=== PATIENT | female | born 1930 | race Caucasian/White ===

== ENCOUNTER 2016-07-07 09:05 | Emergency (ER) | payer MEDICARE, OTHER ==
--- NOTE | 2016-07-07 09:27 | ERPHSYRPT ---
- History of Present Illness Time Seen by Provider: 07/07/16 09:20 Source: patient Exam Limitations: no limitations Physician History: 85 y/o female brought in by son for falling this morning. Pt mentions she was using her walker when she got it caught on something and landed on her side and then on her head. Pt admits to having pain of both hips and mild pain of her hips. Pt describes the pain as aching, constant, 6/10 and pt has not taken any pain meds. Pt is not on any blood thinners. No LOC. Occurred: just prior to arrival Reason for Fall: slipped Injuries/Pain Location: neck, pelvis Loss of Consciousness: no loss of consciousness Quality: aching Severity of Pain-Max: moderate Severity of Pain-Current: moderate Modifying Factors: Improves With: nothing Associated Symptoms (Fall): denies symptoms Allergies/Adverse Reactions: No Known Drug Allergies Allergy (Verified 07/07/16 09:30) Home Medications: Docusate Sodium [Colace] 100 mg PO BID PRN 01/02/16 [History] Ferrous Sulfate [Iron] 325 mg PO DAILY 01/02/16 [History] Bumetanide 1 mg [Bumex 1 mg] 1 mg PO DAILY 07/07/16 [History] Carbidopa/Levodopa [Carbidopa-Levo 25-100 mg Odt] 1 each PO QID 07/07/16 [ History] Diclofenac Sodium Gel [Voltaren GEL] 100 gm TP BID 07/07/16 [History] Hydroxyzine HCl 25 mg [Atarax 25 mg] 25 mg PO TID 07/07/16 [History] Metoprolol Succinate 25 mg PO DAILY 07/07/16 [History] Hx Tetanus, Diphtheria Vaccination/Date Given: Yes Hx Influenza Vaccination/Date Given: Yes (2014) Hx Pneumococcal Vaccination/Date Given: Yes - Review of Systems Constitutional: No Fever, No Chills Eyes: No Symptoms Ears, Nose, & Throat: No Symptoms Respiratory: No Cough, No Dyspnea Cardiac: No Chest Pain, No Edema, No Syncope Abdominal/Gastrointestinal: No Abdominal Pain, No Nausea, No Vomiting, No Diarrhea Genitourinary Symptoms: No Dysuria Musculoskeletal: Neck Pain, Joint Pain, No Back Pain Skin: No Rash Neurological: No Dizziness, No Focal Weakness, No Sensory Changes Psychological: No Symptoms Endocrine: No Symptoms All Other Systems: Reviewed and Negative - Past Medical History Pertinent Past Medical History: Yes Neurological History: Other ENT History: No Pertinent History Cardiac History: Congestive Heart Failure, Hypertension Respiratory History: CHF Endocrine Medical History: No Pertinent History Musculoskeletal History: No Pertinent History GI Medical History: No Pertinent History History: No Pertinent History Psycho-Social History: No Pertinent History Female Reproductive Disorders: Breast Cancer Other Medical History: PARKINSONS - Past Surgical History Past Surgical History: Yes Neuro Surgical History: No Pertinent History Cardiac: No Pertinent History Respiratory: No Pertinent History Gastrointestinal: No Pertinent History Genitourinary: No Pertinent History Musculoskeletal: Orthopedic Surgery Female Surgical History: Hysterectomy, Mastectomy Other Surgical History: RIGHT MASTECTOMY IN 1984 FROM BREAST CA - Social History Smoking Status: Never smoker Exposure to second hand smoke: No Drug Use: none Patient Lives Alone: No Significant Family History: heart disease, hypertension - Nursing Vital Signs Nursing Vital Signs: Initial Vital Signs Temperature 98.9 F Temperature Source Oral Pulse Rate 88 Respiratory Rate 16 Blood Pressure 116/58 Pain Intensity 0 - Tomasa Coma Score Best Eye Response ([place]): (4) open spontaneously Best Verbal Response (Tomasa): (5) oriented Best Motor Response ([place]omas[place]): (6) obeys commands [place] Total: 15 - Physical Exam General Appearance: no apparent distress, alert Head Injury: no evidence of injury Eye Exam: PERRL/EOMI ENT Exam: airway nml Neck Exam: normal inspection, No tenderness Respiratory/Chest Exam: normal breath sounds, No chest tenderness, No respiratory distress Cardiovascular Exam: normal heart sounds, regular rate/rhythm Gastrointestinal Exam: soft, No tenderness, No distention, No guarding, No ecchymosis Back Exam: normal inspection, No vertebral tenderness Extremity Exam: normal inspection, pelvis stable, limited range of motion, hip tenderness, pain with movement, No deformities Neurologic Exam: alert, oriented x 3, cooperative, sensation nml, No motor deficits Skin Exam: normal color, warm, dry Ordered Tests: Active Orders 24 hr Category Date Time Status Cervical Collar Application STAT Care 07/07/16 10:44 Active EKG-ER Only STAT Care 07/07/16 09:45 Active Regular Diet Diet 07/07/16 Dinner Active CERVICAL SPINE WO CONTRAST [CT] Stat Exams 07/07/16 09:29 Completed HEAD WITHOUT CONTRAST [CT] Stat Exams 07/07/16 09:29 Completed HIP JUVENTINO (4V) INCL PELV IF DONE Stat Exams 07/07/16 09:29 Completed CBCD [CBC W DIFF] Stat Lab 07/07/16 11:20 Completed CMP Stat Lab 07/07/16 11:20 Completed Manual Differential NC Stat Lab 07/07/16 11:20 Completed TROPONIN Stat Lab 07/07/16 11:20 Completed UA W/ MICROSCOPIC Stat Lab 07/07/16 09:50 Completed UA W/RFX UR CULTURE Stat Lab 07/07/16 09:50 Completed Medication Summary Discontinued Medications Generic Name Dose Route Start Last Admin Trade Name Lisa PRN Reason Stop Dose Admin Morphine Sulfate 2 mg 07/07/16 09:30 07/07/16 16:12 Morphine Sulfate 2 Mg Inj IM 07/07/16 09:31 Not Given STAT ONE Morphine Sulfate 2 mg 07/07/16 10:32 07/07/16 10:44 Morphine Sulfate 2 Mg Inj IV 07/07/16 10:33 2 mg STAT ONE Administration Morphine Sulfate Confirm 07/07/16 10:42 Morphine Sulfate 2 Mg Inj Administered 07/07/16 10:43 Dose 2 mg .ROUTE .Decalog-MED ONE Lab/Rad Data: Laboratory Result Diagrams 07/07/16 11:20 07/07/16 11:20 Laboratory Results 07/07/16 07/07/16 07/07/16 Range/Units 11:20 11:20 11:20 WBC 7.2 (4.0-10.5) K/mm3 RBC 3.74 L (4.1-5.4) M/mm3 Hgb 11.0 L (12.0-16.0) gm/dl Hct 35.0 (35-47) % MCV 93.6 (78-100) fl MCH 29.4 (26-32) pg MCHC 31.4 L (32-36) g/dl RDW 14.2 H (11.5-14.0) % Plt Count 165 (150-450) K/mm3 MPV 10.0 H (6-9.5) fl Segmented Neutrophils 79 H (36.0-66.0) % Band Neutrophils 6 H (0.0-2.0) % Lymphocytes (Manual) 14 L (24-44) % Monocytes (Manual) 1 (0.0-12.0) % Differential Comment ABNORMAL Platelet Estimate NORMAL (NORMAL) Hypochromasia 1+ Sodium 141 (136-145) mEq/L Potassium 4.6 (3.5-5.1) mEq/L Chloride 104 (98-107) mEq/L Carbon Dioxide 33.3 H (21-32) mEq/L Anion Gap 8.4 (5-15) MEQ/L BUN 24 H (9-20) mg/dL Creatinine 0.88 (0.55-1.30) mg/dl Estimated GFR > 60 ML/MIN Glucose 91 (70-110) MG/DL Calcium 8.6 (8.5-10.1) mg/dL Total Bilirubin 0.5 (0.2-1.0) mg/dL AST 23 (15-37) U/L ALT 17 (12-78) U/L Alkaline Phosphatase 57 (46-116) U/L Troponin I < 0.017 (0.000-0.056) ng/ml Serum Total Protein 6.6 (6.4-8.2) gm/dL Albumin 3.5 (3.4-5.0) g/dL Ur Collection Type Urine Color (YELLOW) Urine Appearance (CLEAR) Urine pH (5-6) Ur Specific [place] (1.005-1.025) Urine Protein (Negative) Urine Glucose (UA) (NEGATIVE) mg/dL Urine Ketones (NEGATIVE) Urine Nitrite (NEGATIVE) Urine Bilirubin (NEGATIVE) Urine Urobilinogen (0-1) mg/dL Urine WBC (Auto) (NEGATIVE) Urine RBC (Auto) (0-5) Sharath/ul Urine Microscopic RBC (0-2) /HPF Ur Epithelial Cells (FEW) /HPF Amorphous Crystals (NEGATIVE) /HPF Specimen Received 07/07/16 Range/Units 09:50 WBC (4.0-10.5) K/mm3 RBC (4.1-5.4) M/mm3 Hgb (12.0-16.0) gm/dl Hct (35-47) % MCV (78-100) fl MCH (26-32) pg MCHC (32-36) g/dl RDW (11.5-14.0) % Plt Count (150-450) K/mm3 MPV (6-9.5) fl Segmented Neutrophils (36.0-66.0) % Band Neutrophils (0.0-2.0) % Lymphocytes (Manual) (24-44) % Monocytes (Manual) (0.0-12.0) % Differential Comment Platelet Estimate (NORMAL) Hypochromasia Sodium (136-145) mEq/L Potassium (3.5-5.1) mEq/L Chloride (98-107) mEq/L Carbon Dioxide (21-32) mEq/L Anion Gap (5-15) MEQ/L BUN (9-20) mg/dL Creatinine (0.55-1.30) mg/dl Estimated GFR ML/MIN Glucose (70-110) MG/DL Calcium (8.5-10.1) mg/dL Total Bilirubin (0.2-1.0) mg/dL AST (15-37) U/L ALT (12-78) U/L Alkaline Phosphatase (46-116) U/L Troponin I (0.000-0.056) ng/ml Serum Total Protein (6.4-8.2) gm/dL Albumin (3.4-5.0) g/dL Ur Collection Type VOID Urine Color YELLOW (YELLOW) Urine Appearance CLOUDY (CLEAR) Urine pH 7.5 (5-6) Ur Specific [place] 1.015 (1.005-1.025) Urine Protein 30 (Negative) Urine Glucose (UA) NEGATIVE (NEGATIVE) mg/dL Urine Ketones NEGATIVE (NEGATIVE) Urine Nitrite NEGATIVE (NEGATIVE) Urine Bilirubin NEGATIVE (NEGATIVE) Urine Urobilinogen 0.2 (0-1) mg/dL Urine WBC (Auto) NEGATIVE (NEGATIVE) Urine RBC (Auto) TRACE-INTACT (0-5) Sharath/ul Urine Microscopic RBC 0-2 (0-2) /HPF Ur Epithelial Cells RARE (FEW) /HPF Amorphous Crystals MODERATE (NEGATIVE) /HPF Specimen Received 07/07/16 0958 - Progress Progress: improved Progress Note: 07/07/16 12:[address] scan head and cervical spine are within normal limits. The bilateral hip x ray are normal. The rest of the labs and UA are normal. Pt will have a PT evaluation prior to being discharged. 07/07/16 16:27 Pt will be going to [facility] [address] - Departure Time of Disposition: 16:27 Departure Disposition: Home Clinical Impression: Falls Condition: Stable Critical Care Time: No Instructions: Prevent Falls Additional Instructions: Return to the ER if you should continue to fall, feel dizzy, have leg weakness, chest pain, shortness of breath or palpitations.
[2016-07-07 09:30] VITALS: O2SAT 97
[2016-07-07] MEDS ORDERED: MORPHINE SULFATE 2 MG INJ IM ONE (09:30)
--- NOTE | 2016-07-07 10:06 | XRAY ---
Indication: Headache following fall. Multiple contiguous axial images obtained through the head without contrast. Comparison: January 02, 2016 There is again age-appropriate global atrophy and benign basal ganglia calcifications. No acute intracranial hemorrhage, abnormal extra-axial fluid collection, or mass effect. Fourth ventricle is midline without hydrocephalus. Stable mucosal thickening/fluid leveling in the right sphenoid sinus and new tiny fluid leveling in the right maxillary sinus. Remaining mastoid air cells are pneumatized and clear. Impression: Stable nonacute senile brain with again paranasal sinus disease. CTDI is 48.76
[2016-07-07 10:08] LABS: Collection Type VOID; Ph 7.5 (5-6)
[2016-07-07 10:09] LABS: COMPLETE URINE MICROSCOPIC? YES; Epithelial Cells RARE /HPF (FEW)
[2016-07-07 10:10] LABS: ADD URINE CULTURE? NO (NO)
--- NOTE | 2016-07-07 10:12 | XRAY ---
Indication: Pain following fall. Multiple contiguous axial images obtained through the cervical spine. Sagittal and coronal reformatted images obtained. Comparison: January 02, 2016. Axial images again demonstrates age-related osteopenia. No acute fracture, suspicious bony lesions, or spinal canal stenosis. Sagittal and coronal reformatted images demonstrates normal alignment. Disc spaces maintained. No acute compression fracture, subluxation, or jumped facet. Normal-appearing craniocervical junction. Visualized noncontrasted soft tissues again demonstrates minimal right carotid calcifications, heterogeneous thyroid gland, and right apical calcified pulmonary scarring/fibrosis. Impression: Stable osteopenia. Again negative for acute fracture/subluxation. CT DI is 57.70
--- NOTE | 2016-07-07 10:17 | XRAY ---
Indication: Bilateral hip pain following fall. Comparison: Left hip exam of December 06, 2015 AP pelvis and 2 views of the left and right hip again demonstrates age-related osteopenia, left total hip arthroplasty with adjacent heterotopic ossifications, lumbosacral junction degenerative changes, pelvic phleboliths, and fecal stasis. No new/acute findings.
[2016-07-07] MEDS ORDERED: MORPHINE SULFATE 2 MG INJ IV ONE (10:32)
[2016-07-07] MEDS ORDERED: MORPHINE SULFATE 2 MG INJ ONE (10:42)
[2016-07-07 11:26] LABS: Mean Cell Volume 93.6 fl (78-100); Mean Corpuscular Hemoglobin 29.4 pg (26-32); Platelet Count 165 K/mm3 (150-450); Red Blood Count 3.74 M/mm3 (4.1-5.4); Red Cell Distribution Width 14.2 % (11.5-14.0); White Blood Count 7.2 K/mm3 (4.0-10.5)
[2016-07-07 11:45] LABS: ALBUMIN 3.5 g/dL (3.4-5.0); ALKALINE PHOSPHATASE 57 U/L (46-116); ANION GAP 8.4 MEQ/L (5-15); BILIRUBIN,TOTAL 0.5 mg/dL (0.2-1.0); BLOOD UREA NITROGEN 24 mg/dL (9-20); CHLORIDE 104 mEq/L (98-107); Carbon Dioxide 33.3 mEq/L (21-32); Glucose 91 MG/DL (70-110); Potassium 4.6 mEq/L (3.5-5.1); SGOT/AST 23 U/L (15-37); SGPT/ALT 17 U/L (12-78); SODIUM 141 mEq/L (136-145); Total Protein 6.6 gm/dL (6.4-8.2)
[2016-07-07 12:45] LABS: BAND 6 % (0.0-2.0); Total Cells Counted 100
[2016-07-07 12:46] LABS: Hypochromia 1+; Platelet Estimate NORMAL (NORMAL)
[2016-07-07 16:53] VITALS: BP 118/62; PULSE 84
== END 2016-07-07 16:42 | disposition short-term general hospital (02) ==
LOC: ED 09:05
DX: S70.00XA Contusion of unspecified hip, initial encounter (principal); S00.93XA Contusion of unspecified part of head, initial encounter; M25.552 Pain in left hip; M25.551 Pain in right hip; M54.2 Cervicalgia; W01.0XXA Fall on same level from slipping, tripping and stumbling without subsequent striking against object, initial encounter; I50.9 Heart failure, unspecified; I10 Essential (primary) hypertension; Z79.899 Other long term (current) drug therapy
CPT/HCPCS: 36415; 70450; 72125; 73522; 80053; 81000; 84484; 85025; 93005; 96374; 99283; J2270

== ENCOUNTER 2017-01-07 03:15 | Observation (INO) | payer MEDICARE, OTHER ==
[2017-01-07] MEDS ORDERED: Sodium Chloride 0.9% 1000 ML 1,000 ML IV SCH ×2 (03:45→06:09)
--- NOTE | 2017-01-07 03:48 | ERPHSYRPT ---
- History of Present Illness Time Seen by Provider: 01/07/17 03:42 Source: patient Exam Limitations: no limitations Physician History: 86-year-old white female with history of congestive heart failure, high blood pressure, Parkinson's, breast cancer Brought by medics with complaint of weakness. According to the patient she was unable to get out of her chair into the bathroom medics were summoned. Medics noted that the patient was week. Patient states that she felt like her legs were stiff she did not have any focal movement deficits. Patient does have Parkinson's and obvious tremor. She is not having any chest pain no shortness of breath no abdominal pain no nausea no vomiting. Patient apparently has health care during the day but the none at night. Past medical history congestive heart failure, high blood pressure Parkinson's, breast cancer. past surgical history includes hysterectomy and mastectomy Timing/Duration: today Severity: moderate Modifying Factors: Improves With: nothing Associated Symptoms: weakness, other (patient with Parkinson's states felt stiff could not get out of chair), No nausea, No vomiting, No abdominal pain, No shortness of breath, No heartburn, No diaphoresis, No cough, No chills, No chest pain, No fever, No headaches, No loss of appetite, No malaise, No rash, No syncope, No seizure Allergies/Adverse Reactions: No Known Drug Allergies Allergy (Verified 01/07/17 05:42) Home Medications: Docusate Sodium [Colace] 100 mg PO BID 01/02/16 [History] Bumetanide 1 mg [Bumex 1 mg] 1 mg PO DAILY 07/07/16 [History] Carbidopa/Levodopa [Carbidopa-Levo 25-100 mg Odt] 1 each PO BID 07/07/16 [ History] Metoprolol Succinate 25 mg PO DAILY 07/07/16 [History] Hx Tetanus, Diphtheria Vaccination/Date Given: Yes Hx Influenza Vaccination/Date Given: Yes (2014) Hx Pneumococcal Vaccination/Date Given: Yes - Review of Systems Constitutional: Weakness, No Fever, No Chills Eyes: No Symptoms Ears, Nose, & Throat: No Symptoms Respiratory: No Cough, No Dyspnea Cardiac: No Chest Pain, No Edema, No Syncope Abdominal/Gastrointestinal: No Abdominal Pain, No Nausea, No Vomiting, No Diarrhea Genitourinary Symptoms: No Dysuria Musculoskeletal: Other (Patient states that her arms and legs are stiff) Skin: No Rash Neurological: Tremors, No Dizziness, No Focal Weakness, No Sensory Changes Psychological: No Symptoms Endocrine: No Symptoms All Other Systems: Reviewed and Negative - Past Medical History Pertinent Past Medical History: Yes Neurological History: Other ENT History: No Pertinent History Cardiac History: Congestive Heart Failure, Hypertension Respiratory History: CHF Endocrine Medical History: No Pertinent History Musculoskeletal History: No Pertinent History GI Medical History: No Pertinent History History: No Pertinent History Psycho-Social History: No Pertinent History Female Reproductive Disorders: Breast Cancer Other Medical History: PARKINSONS - Past Surgical History Past Surgical History: Yes Neuro Surgical History: No Pertinent History Cardiac: No Pertinent History Respiratory: No Pertinent History Gastrointestinal: No Pertinent History Genitourinary: No Pertinent History Musculoskeletal: Orthopedic Surgery Female Surgical History: Hysterectomy, Mastectomy Other Surgical History: RIGHT MASTECTOMY IN 1984 FROM BREAST CA - Social History Smoking Status: Never smoker Exposure to second hand smoke: No Drug Use: none Patient Lives Alone: No Significant Family History: heart disease, hypertension - Nursing Vital Signs Nursing Vital Signs: Initial Vital Signs Temperature 98.1 F Temperature Source Oral Pulse Rate 67 Respiratory Rate 18 Blood Pressure [] 147/70 Pain Intensity 5 - Physical Exam General Appearance: other (elderly white female tremors of both hands) Eye Exam: PERRL/EOMI, eyes nml inspection Ears, Nose, Throat Exam: normal ENT inspection, TMs normal, pharynx normal, moist mucous membranes Neck Exam: normal inspection, non-tender, supple, full range of motion Respiratory Exam: normal breath sounds, lungs clear, No respiratory distress Cardiovascular Exam: tachycardia Gastrointestinal/Abdomen Exam: soft, normal bowel sounds, No tenderness, No mass Extremity Exam: other (patient with full range of motion to mo0ve both feet, and lower legs) Neurologic Exam: alert, oriented x 3, cooperative, normal mood/affect, nml cerebellar function, nml station & gait, sensation nml, other (positive tremor) , No motor deficits Skin Exam: normal color, warm, dry, No rash SpO2 Interpretation: normal - Course Nursing assessment & vital signs reviewed: Yes EKG Interpreted by Me: RATE (88 bpm), Other (EKG: Sinus arrhythmia, 88 bpm, normal axis, large amount of artifact, no acute ST or T wave changes, compared to July 07, 2016) - Radiology Exams Chest X-ray Interpretation: Interpreted by me, Other (no acute disease process noted) Ordered Tests: Active Orders 24 hr Category Date Time Status EKG-ER Only STAT Care 01/07/17 03:41 Active IV Insertion STAT Care 01/07/17 03:41 Active CHEST 1 VIEW (PORTABLE) Stat Exams 01/07/17 03:43 Taken AMYLASE Stat Lab 01/07/17 04:16 Completed CBC W DIFF Stat Lab 01/07/17 04:16 Completed CMP Stat Lab 01/07/17 04:16 Completed LIPASE Stat Lab 01/07/17 04:16 Completed UA W/ MICROSCOPIC Stat Lab 01/07/17 05:00 Completed Transfer Order Routine Transfer 01/07/17 05:44 Ordered Medication Summary Generic Name Dose Route Start Last Admin Trade Name Freq PRN Reason Stop Dose Admin Sodium Chloride 1,000 mls @ 100 mls/hr 01/07/17 03:45 01/07/17 03:59 Sodium Chloride 0.9% 1000 Ml IV 02/06/17 03:44 100 mls/hr .Q10H ERNESTO Administration Lab/Rad Data: Laboratory Result Diagrams 01/07/17 04:16 01/07/17 04:16 Laboratory Results 01/07/17 01/07/17 01/07/17 Range/Units 05:00 04:16 04:16 WBC (4.0-10.5) K/mm3 RBC (4.1-5.4) M/mm3 Hgb (12.0-16.0) gm/dl Hct (35-47) % MCV (78-100) fl MCH (26-32) pg MCHC (32-36) g/dl RDW (11.5-14.0) % Plt Count (150-450) K/mm3 MPV (6-9.5) fl Gran % (36.0-66.0) % Lymphocytes % (24.0-44.0) % Monocytes % (0.0-12.0) % Eosinophils % (0.00-5.0) % Basophils % (0.0-0.4) % Basophils # (0-0.4) Sodium 142 (136-145) mEq/L Potassium 4.2 (3.5-5.1) mEq/L Chloride 105 (98-107) mEq/L Carbon Dioxide 33.1 H (21-32) mEq/L Anion Gap 8.5 (5-15) MEQ/L BUN 27 H (9-20) mg/dL Creatinine 1.07 (0.55-1.30) mg/dl Estimated GFR 52 ML/MIN Glucose 116 H (70-110) MG/DL Calcium 8.7 (8.5-10.1) mg/dL Total Bilirubin 0.40 (0.2-1.0) mg/dL AST 18 (15-37) U/L ALT 11 L (12-78) U/L Alkaline Phosphatase 54 (46-116) U/L Serum Total Protein 6.4 (6.4-8.2) gm/dL Albumin 3.4 (3.4-5.0) g/dL Amylase 63 (25-115) U/L Lipase 333 (73-393) U/L Ur Collection Type CATH Urine Color YELLOW (YELLOW) Urine Appearance HAZY (CLEAR) Urine pH 8.0 (5-6) Ur Specific [place] 1.005 (1.005-1.025) Urine Protein NEGATIVE (Negative) Urine Ketones NEGATIVE (NEGATIVE) Urine Blood 50 (0-5) Sharath/ul Urine Nitrite NEGATIVE (NEGATIVE) Urine Bilirubin NEGATIVE (NEGATIVE) Urine Urobilinogen NORMAL (0-1) mg/dL Ur Leukocyte Esterase NEGATIVE (NEGATIVE) Urine Microscopic RBC 15-25 (0-2) /HPF Urine Microscopic WBC 0-2 (0-5) /HPF Ur Epithelial Cells RARE (FEW) /HPF Amorphous Crystals FEW (NEGATIVE) /HPF Urine Bacteria FEW (NEGATIVE) /HPF Urine Glucose NEGATIVE (NEGATIVE) mg/dL Specimen Received 01/07/17 0500 01/07/17 Range/Units 04:16 WBC 3.9 L (4.0-10.5) K/mm3 RBC 3.60 L (4.1-5.4) M/mm3 Hgb 10.6 L (12.0-16.0) gm/dl Hct 33.5 L (35-47) % MCV 93.1 (78-100) fl MCH 29.4 (26-32) pg MCHC 31.6 L (32-36) g/dl RDW 14.1 H (11.5-14.0) % Plt Count 150 (150-450) K/mm3 MPV 10.2 H (6-9.5) fl Gran % 71.1 H (36.0-66.0) % Lymphocytes % 17.8 L (24.0-44.0) % Monocytes % 8.5 (0.0-12.0) % Eosinophils % 2.1 (0.00-5.0) % Basophils % 0.5 (0.0-0.4) % Basophils # 0.02 (0-0.4) Sodium (136-145) mEq/L Potassium (3.5-5.1) mEq/L Chloride (98-107) mEq/L Carbon Dioxide (21-32) mEq/L Anion Gap (5-15) MEQ/L BUN (9-20) mg/dL Creatinine (0.55-1.30) mg/dl Estimated GFR ML/MIN Glucose (70-110) MG/DL Calcium (8.5-10.1) mg/dL Total Bilirubin (0.2-1.0) mg/dL AST (15-37) U/L ALT (12-78) U/L Alkaline Phosphatase (46-116) U/L Serum Total Protein (6.4-8.2) gm/dL Albumin (3.4-5.0) g/dL Amylase (25-115) U/L Lipase (73-393) U/L Ur Collection Type Urine Color (YELLOW) Urine Appearance (CLEAR) Urine pH (5-6) Ur Specific [place] (1.005-1.025) Urine Protein (Negative) Urine Ketones (NEGATIVE) Urine Blood (0-5) Sharath/ul Urine Nitrite (NEGATIVE) Urine Bilirubin (NEGATIVE) Urine Urobilinogen (0-1) mg/dL Ur Leukocyte Esterase (NEGATIVE) Urine Microscopic RBC (0-2) /HPF Urine Microscopic WBC (0-5) /HPF Ur Epithelial Cells (FEW) /HPF Amorphous Crystals (NEGATIVE) /HPF Urine Bacteria (NEGATIVE) /HPF Urine Glucose (NEGATIVE) mg/dL Specimen Received - Progress Progress: improved Progress Note: 01/07/17 05:42 86-year-old white female with history of congestive heart failure high blood pressure Parkinson's breast cancer. Brought by medics patient apparently was unable to get out of her chair to go to the bathroom tonight patient arrives quite weak and tremulous. She states that her legs were stiff she did not have any focal deficits on physical exam. Patient's CBC essentially normal chemistries essentially normal urine 15-25 red cells per high-power field EKG large amount of artifact 88 bpm sinus arrhythmia no acute ST or T wave changes are noted. I've discussed patient's case with Dr. Harris will place patient on observation. Patient does seem to be improving with IV hydration - Departure Time of Disposition: 05:43 Departure Disposition: Observation Clinical Impression: Weakness Condition: Fair Critical Care Time: No Referrals: KIRILL VILLEDA MD [Primary Care Provider] -
[2017-01-07] MEDS ORDERED: Sodium Chloride 0.9% 1000 ML 1,000 ML ONE (03:58)
[2017-01-07 04:22] LABS: BASOPHIL % 0.5 % (0.0-0.4); Eosinophil % 2.1 % (0.00-5.0); Granulocytes % 71.1 % (36.0-66.0); Lymphocytes % 17.8 % (24.0-44.0); Mean Cell Volume 93.1 fl (78-100); Mean Corpuscular Hemoglobin 29.4 pg (26-32); Mean Platelet Volume 10.2 fl (6-9.5); Monocytes % 8.5 % (0.0-12.0); Platelet Count 150 K/mm3 (150-450); Red Cell Distribution Width 14.1 % (11.5-14.0); White Blood Count 3.9 K/mm3 (4.0-10.5)
[2017-01-07 04:54] LABS: ALBUMIN 3.4 g/dL (3.4-5.0); ANION GAP 8.5 MEQ/L (5-15); BILIRUBIN,TOTAL 0.4 mg/dL (0.2-1.0); Carbon Dioxide 33.1 mEq/L (21-32); Potassium 4.2 mEq/L (3.5-5.1); Total Protein 6.4 gm/dL (6.4-8.2)
[2017-01-07 05:14] LABS: Bilirubin NEGATIVE (NEGATIVE); Blood 50 Ery/ul (0-5); COMPLETE URINE MICROSCOPIC? YES; Collection Type CATH; Glucose NEGATIVE (NEGATIVE); Leukocyte Esterase NEGATIVE (NEGATIVE)
[2017-01-07 05:19] LABS: Bacteria FEW /HPF (NEGATIVE); Epithelial Cells RARE /HPF (FEW); WBC 0-2 /HPF (0-5)
[2017-01-07 05:20] LABS: ADD URINE CULTURE? NO (NO)
[2017-01-07 07:41] LABS: Mean Platelet Volume 10.5 fl (6-9.5); Platelet Count 158 K/mm3 (150-450); Red Blood Count 3.76 M/mm3 (4.1-5.4); White Blood Count 4.2 K/mm3 (4.0-10.5)
[2017-01-07 08:10] LABS: Mean Corpuscular Hemoglobin 29.2 pg (26-32)
[2017-01-07 08:44] LABS: ANION GAP 10.9 MEQ/L (5-15); BLOOD UREA NITROGEN 23 mg/dL (9-20); CHLORIDE 104 mEq/L (98-107); Carbon Dioxide 29.9 mEq/L (21-32); Glucose 90 MG/DL (70-110); Potassium 4.1 mEq/L (3.5-5.1); SODIUM 141 mEq/L (136-145)
[2017-01-07] MEDS ORDERED: DISPOSABLE RC PRN (09:37)
[2017-01-07] MEDS ORDERED: TYLENOL 325 MG PO PRN (09:37)
--- NOTE | 2017-01-07 09:59 | XRAY ---
Indication: Weakness. Comparison: December 03, 2015. Portable chest unchanged again hyperinflated and clear with incidental calcified granulomas. Heart is not enlarged. Bony thorax intact again with osteopenia, degenerative changes, and right mastectomy/axillary ken dissection. No new/acute findings.
[2017-01-07] MEDS ORDERED: BUMEX 1 MG PO SCH (10:00)
[2017-01-07] MEDS ORDERED: Colace 100 MG PO SCH (10:00)
[2017-01-07] MEDS ORDERED: Sinemet 25/100 MG PO SCH (10:00)
[2017-01-07] MEDS ORDERED: FEOSOL 325 MG PO SCH ×2 (10:00→12:00)
[2017-01-07] MEDS ORDERED: Voltaren GEL TP SCH (10:00)
[2017-01-07] MEDS ORDERED: LEVODOPA PO SCH (10:00)
[2017-01-07] MEDS ORDERED: CARBIDOPA PO SCH (10:00)
[2017-01-07] MEDS ORDERED: Toprol-Xl 25MG Tablets PO SCH (10:00)
--- NOTE | 2017-01-07 10:02 | PCM.HP ---
History of Present Illness - Chief Complaint Chief Complaint: weakness History of Present Illness: 86-year-old white female with history of congestive heart failure, high blood pressure, Parkinson's, breast cancer Brought by medics with complaint of weakness. According to the patient she was unable to get out of her chair into the bathroom medics were summoned. Medics noted that the patient was week. Patient states that she felt like her legs were stiff she did not have any focal movement deficits. Patient does have Parkinson's and obvious tremor. She is not having any chest pain no shortness of breath no abdominal pain no nausea no vomiting. Patient apparently has health care during the day but the none at night. Past medical history congestive heart failure, high blood pressure Parkinson's, breast cancer. past surgical history includes hysterectomy and mastectomy Timing/Duration: today Severity: moderate Modifying Factors: Improves With: nothing Associated Symptoms: weakness, other (patient with Parkinson's states felt stiff could not get out of chair), No nausea, No vomiting, No abdominal pain, No shortness of breath, No heartburn, No diaphoresis, No cough, No chills, No chest pain, No fever, No headaches, No loss of appetite, No malaise, No rash, No syncope, No seizure - Review of Systems Constitutional: No Fever, No Chills Eyes: No Symptoms Ears, Nose, & Throat: No Symptoms Respiratory: No Cough, No Short Of Breath Cardiac: No Chest Pain, No Edema, No Syncope Abdominal/Gastrointestinal: No Abdominal Pain, No Nausea, No Vomiting, No Diarrhea Genitourinary Symptoms: No Dysuria Musculoskeletal: No Back Pain, No Neck Pain Skin: No Rash Neurological: No Dizziness, No Focal Weakness, No Sensory Changes Psychological: No Symptoms Endocrine: No Symptoms Hematologic/Lymphatic: No Symptoms Immunological/Allergic: No Symptoms Medications & Allergies Home Medications: Home Medication List Docusate Sodium [Colace] 100 mg PO BID 01/02/16 [History Confirmed 01/07/17] Bumetanide 1 mg [Bumex 1 mg] 1 mg PO DAILY 07/07/16 [History Confirmed ] Carbidopa/Levodopa [Carbidopa-Levo 25-100 mg Odt] 1 each PO BID 07/07/16 [ History Confirmed 01/07/17] Metoprolol Succinate 25 mg PO DAILY 07/07/16 [History Confirmed 01/07/17] Acetaminophen 325 mg [Tylenol 325 mg] 650 mg PO Q4HPRN PRN 01/07/17 [ History Confirmed 01/07/17] Diclofenac Sodium Gel [Voltaren GEL] 100 gm TP BID 01/07/17 [History Confirmed 01/07/17] Enema Bag, Disposable [Enema Bag] 1 each RC DAILY PRN 01/07/17 [History Confirmed 01/07/17] Ferrous Sulfate 325 mg PO DAILY 01/07/17 [History Confirmed 01/07/17] Lactose-Reduced Food [Ensure Liquid] 237 ml PO AC 01/07/17 [History Confirmed ] Allergies/Adverse Reactions: Allergies Allergy/AdvReac Type Severity Reaction Status Date / Time No Known Drug Allergies Allergy Verified 01/07/17 05:42 - Past Medical History Past Medical History: Yes Neurological History: Other ENT History: No Pertinent History Cardiac History: Congestive Heart Failure, Hypertension Respiratory History: CHF Endocrine Medical History: No Pertinent History Musculoskelatal History: No Pertinent History GI Medical History: No Pertinent History History: No Pertinent History Pyscho-Social History: No Pertinent History Reproductive Disorders: Breast Cancer Comment: PARKINSONS - Female History Are you now?: No - Past Surgical History Past Surgical History: Yes Neuro Surgical History: No Pertinent History Cardiac History: No Pertinent History Respiratory Surgery: No Pertinent History GI Surgical History: No Pertinent History Genitourinary Surgical Hx: No Pertinent History Musculskeletal Surgical Hx: Orthopedic Surgery Female Surgical History: Hysterectomy, Mastectomy Other Surgical History: RIGHT MASTECTOMY IN 1984 FROM BREAST CA - Social History Smoking Status: Never smoker Exposure to second hand smoke: Yes Alcohol: None Drug Use: none Significant Family History: heart disease, hypertension - Physical Exam Vital Signs: Vital Signs - 24 hr Temp Pulse Resp BP Pulse Ox 01/07/17 08:00 98.1 F 67 18 147/70 98 01/07/17 05:07 67 18 147/70 98 01/07/17 04:21 98.1 F 89 18 144/73 95 General Appearance: no apparent distress, alert Neurologic Exam: alert, oriented x 3, cooperative, normal mood/affect, nml cerebellar function, nml station & gait, sensation nml, No motor deficits Eye Exam: PERRL/EOMI, eyes nml inspection Ears, Nose, Throat Exam: normal ENT inspection, TMs normal, pharynx normal, moist mucous membranes Neck Exam: normal inspection, non-tender, supple, full range of motion Respiratory Exam: normal breath sounds, lungs clear, No respiratory distress Cardiovascular Exam: regular rate/rhythm, normal heart sounds, normal peripheral pulses Gastrointestinal/Abdomen Exam: soft, normal bowel sounds, No tenderness, No mass Back Exam: normal inspection, normal range of motion, No CVA tenderness, No vertebral tenderness Extremity Exam: normal inspection, normal range of motion, pelvis stable Skin Exam: normal color, warm, dry, No rash Lymphatic Exam: No adenopathy Results - Labs Lab/Micro Results: Lab Results-Last 24 Hours 01/07/17 01/07/17 Range/Units 07:30 07:30 WBC 4.2 (4.0-10.5) K/mm3 RBC 3.76 L (4.1-5.4) M/mm3 Hgb 11.0 L (12.0-16.0) gm/dl Hct 34.6 L (35-47) % MCV 92.0 (78-100) fl MCH 29.2 (26-32) pg MCHC 31.8 L (32-36) g/dl RDW 14.0 (11.5-14.0) % Plt Count 158 (150-450) K/mm3 MPV 10.5 H (6-9.5) fl Sodium 141 (136-145) mEq/L Potassium 4.1 (3.5-5.1) mEq/L Chloride 104 (98-107) mEq/L Carbon Dioxide 29.9 (21-32) mEq/L Anion Gap 10.9 (5-15) MEQ/L BUN 23 H (9-20) mg/dL Creatinine 0.89 (0.55-1.30) mg/dl Estimated GFR > 60 ML/MIN Glucose 90 (70-110) MG/DL Calcium 8.8 (8.5-10.1) mg/dL Prealbumin 24.9 (18.0-35.7) mg/dL Assessment/Plan (1) Weakness Current Visit: Yes Status: Acute Code(s): R53.1 - WEAKNESS (2) Falls Current Visit: No Status: Chronic Code(s): W19.XXXA - UNSPECIFIED FALL, INITIAL ENCOUNTER (3) Gait disturbance Current Visit: Yes Status: Chronic Code(s): R26.9 - UNSPECIFIED ABNORMALITIES OF GAIT AND MOBILITY (4) Hypertension Current Visit: No Status: Acute Code(s): I10 - ESSENTIAL (PRIMARY) HYPERTENSION (5) Parkinson disease Current Visit: Yes Status: Acute Code(s): G20 - PARKINSON'S DISEASE
[2017-01-07] MEDS ORDERED: LACTOSE REDUCED FOOD PO SCH (11:30)
[2017-01-07 16:10] VITALS: BP 106/50; PULSE 93; O2SAT 95
--- NOTE | 2017-01-07 17:20 | PCM.DCORD ---
- Discharge Discharge Date: 01/07/17 Disposition: XFER OTHER Condition: Stable Prescriptions: Continue Docusate Sodium [Colace] 100 mg PO BID Metoprolol Succinate 25 mg PO DAILY Bumetanide 1 mg [Bumex 1 mg] 1 mg PO DAILY Carbidopa/Levodopa [Carbidopa-Levo 25-100 mg Odt] 1 each PO BID Lactose-Reduced Food [Ensure Liquid] 237 ml PO AC Diclofenac Sodium Gel [Voltaren GEL] 100 gm TP BID Ferrous Sulfate 325 mg PO DAILY Acetaminophen 325 mg [Tylenol 325 mg] 650 mg PO Q4HPRN PRN PRN Reason: Pain And/Or Fever Enema Bag, Disposable [Enema Bag] 1 each RC DAILY PRN PRN Reason: Constipation Additional Inst[facility] Continue all home meds as ordered Follow up with: KIRILL VILLEDA MD [Primary Care Provider] - Forms: Ambulance Transport Record, Patient Portal Information, Transfer Record Inter-Agency
== END 2017-01-07 17:45 | disposition hospice, home (50) ==
LOC: ED 03:15 → MED SURG 05:57
PROVIDERS: ADMIT General Practice; ATTEND General Practice
DX: R53.1 Weakness (principal); W19.XXXA Unspecified fall, initial encounter; I10 Essential (primary) hypertension; G20 Parkinson's disease; I50.9 Heart failure, unspecified; Z85.3 Personal history of malignant neoplasm of breast; Z79.899 Other long term (current) drug therapy
CPT/HCPCS: 93268; 99285; 36000; 96360; 96361; 93005; 82150; 81000; 36415; 83690; 85027; 85025; 80048; 80053; 84134; 71010; P9612; G0378; A9270-GY

== ENCOUNTER 2017-04-05 19:55 | Emergency (ER) | payer MEDICARE, OTHER ==
--- NOTE | 2017-04-05 20:32 | ERPHSYRPT ---
- History of Present Illness Time Seen by Provider: 04/05/17 20:28 Source: patient, family Exam Limitations: no limitations Patient Subjective Stated Complaint: Pt son states "She is on hospice and today her nurse came in and got me due to her shaking really bad and her speech is slurred." Triage Nursing Assessment: Pt alert and oriented X 3, skin pwd. Pt is shaking, speech slightly slurred. Pt speaking in full sentences. appears in no respiratory distress. Physician History: The patient is an 86-year-old female on hospice accompanied by her son whose states that the home health nurse came out to get him today because she was shaking more and had slurred speech. She was taken off all of her Parkinson's medicines today. The patient denies no new pain. She has chronic hip pain. She denies fever or chills. Her past medical history is significant for congestive heart failure, hypertension, Parkinson's disease, chronic pain. Timing/Duration: today Severity: moderate Modifying Factors: Improves With: nothing Associated Symptoms: denies symptoms Allergies/Adverse Reactions: No Known Drug Allergies Allergy (Verified 01/07/17 05:42) Home Medications: Docusate Sodium [Colace] 100 mg PO BID 01/02/16 [History] Bumetanide 1 mg [Bumex 1 mg] 1 mg PO DAILY 07/07/16 [History] Carbidopa/Levodopa [Carbidopa-Levo 25-100 mg Odt] 1 each PO BID 07/07/16 [ History] Metoprolol Succinate 25 mg PO DAILY 07/07/16 [History] Acetaminophen 325 mg [Tylenol 325 mg] 650 mg PO Q4HPRN PRN 01/07/17 [ History] Diclofenac Sodium Gel [Voltaren GEL] 100 gm TP BID 01/07/17 [History] Enema Bag, Disposable [Enema Bag] 1 each RC DAILY PRN 01/07/17 [History] Ferrous Sulfate 325 mg PO DAILY 01/07/17 [History] Lactose-Reduced Food [Ensure Liquid] 237 ml PO AC 01/07/17 [History] Hx Tetanus, Diphtheria Vaccination/Date Given: No Hx Influenza Vaccination/Date Given: Yes Hx Pneumococcal Vaccination/Date Given: No Immunizations Up to Date: Yes - Review of Systems Constitutional: No Fever, No Chills Eyes: No Symptoms Ears, Nose, & Throat: No Symptoms Respiratory: No Cough, No Dyspnea Cardiac: No Chest Pain, No Edema, No Syncope Abdominal/Gastrointestinal: No Abdominal Pain, No Nausea, No Vomiting, No Diarrhea Genitourinary Symptoms: No Dysuria Musculoskeletal: No Back Pain, No Neck Pain Skin: No Rash Neurological: Speech Changes, Tremors Psychological: No Symptoms Endocrine: No Symptoms Hematologic/Lymphatic: No Symptoms Immunological/Allergic: No Symptoms All Other Systems: Reviewed and Negative - Past Medical History Pertinent Past Medical History: Yes Neurological History: Other ENT History: No Pertinent History Cardiac History: Congestive Heart Failure, Hypertension Respiratory History: CHF Endocrine Medical History: No Pertinent History Musculoskeletal History: No Pertinent History GI Medical History: No Pertinent History History: No Pertinent History Psycho-Social History: No Pertinent History Female Reproductive Disorders: Breast Cancer Other Medical History: PARKINSONS - Past Surgical History Past Surgical History: Yes Neuro Surgical History: No Pertinent History Cardiac: No Pertinent History Respiratory: No Pertinent History Gastrointestinal: No Pertinent History Genitourinary: No Pertinent History Musculoskeletal: Orthopedic Surgery Female Surgical History: Hysterectomy, Mastectomy Other Surgical History: RIGHT MASTECTOMY IN 1984 FROM BREAST CA - Social History Smoking Status: Never smoker Exposure to second hand smoke: No Drug Use: none Patient Lives Alone: Yes Significant Family History: heart disease, hypertension - Female History Hx Last Menstrual Period: none - Nursing Vital Signs Nursing Vital Signs: Initial Vital Signs Temperature 98.3 F 04/05/17 20:09 Pulse Rate 90 04/05/17 20:09 Respiratory Rate 20 04/05/17 20:09 Blood Pressure 154/84 04/05/17 20:09 O2 Sat by Pulse Oximetry 97 04/05/17 20:09 Pain Scale Pain Intensity 2 - Physical Exam General Appearance: no apparent distress, alert Eye Exam: PERRL/EOMI, eyes nml inspection Ears, Nose, Throat Exam: normal ENT inspection, TMs normal, pharynx normal, moist mucous membranes Neck Exam: normal inspection, non-tender, supple, full range of motion Respiratory Exam: normal breath sounds, lungs clear, No respiratory distress Cardiovascular Exam: regular rate/rhythm, normal heart sounds, normal peripheral pulses Gastrointestinal/Abdomen Exam: soft, normal bowel sounds, No tenderness, No mass Pelvic Exam: not done Rectal Exam: not done Back Exam: normal inspection, normal range of motion, No CVA tenderness, No vertebral tenderness Extremity Exam: normal inspection, normal range of motion, pelvis stable Neurologic Exam: alert, oriented x 3, cooperative, 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 as tested, normal mood/affect, slurred speech (mild), other (tremors) Lymphatic Exam: No adenopathy SpO2 Interpretation: normal SpO2: 97 Oxygen Delivery: Room Air - CT Exams Head CT Interpretation: Negative, Tele-radiologist Report (per Dr Allen), No/ Intracranial Hemorrhag Ordered Tests: Active Orders 24 hr Category Date Time Status HEAD WITHOUT CONTRAST [CT] Stat Exams 04/05/17 20:33 Taken BMP Stat Lab 04/05/17 20:50 Completed CBC W DIFF Stat Lab 04/05/17 20:50 Completed CULTURE,URINE Stat Lab 04/05/17 20:50 Received UA W/ MICROSCOPIC Stat Lab 04/05/17 20:50 Completed Lab/Rad Data: Laboratory Result Diagrams 04/05/17 20:50 04/05/17 20:50 Laboratory Results 04/05/17 04/05/17 04/05/17 Range/Units 20:50 20:50 20:50 WBC 3.9 L (4.0-10.5) K/mm3 RBC 3.44 L (4.1-5.4) M/mm3 Hgb 10.4 L (12.0-16.0) gm/dl Hct 32.6 L (35-47) % MCV 94.8 (78-100) fl MCH 30.2 (26-32) pg MCHC 31.9 L (32-36) g/dl RDW 13.9 (11.5-14.0) % Plt Count 153 (150-450) K/mm3 MPV 10.4 H (6-9.5) fl Gran % 67.9 H (36.0-66.0) % Lymphocytes % 19.2 L (24.0-44.0) % Monocytes % 10.6 (0.0-12.0) % Eosinophils % 1.8 (0.00-5.0) % Basophils % 0.5 (0.0-0.4) % Basophils # 0.02 (0-0.4) Sodium 143 (136-145) mEq/L Potassium 4.3 (3.5-5.1) mEq/L Chloride 105 (98-107) mEq/L Carbon Dioxide 32.7 H (21-32) mEq/L Anion Gap 9.4 (5-15) MEQ/L BUN 33 H (9-20) mg/dL Creatinine 1.01 (0.55-1.30) mg/dl Estimated GFR 55 ML/MIN Glucose 92 (70-110) MG/DL Calcium 9.1 (8.5-10.1) mg/dL Ur Collection Type VOID Urine Color YELLOW (YELLOW) Urine Appearance SLIGHTLY CLOUDY (CLEAR) Urine pH 7.0 (5-6) Ur Specific [place] 1.015 (1.005-1.025) Urine Protein TRACE (Negative) Urine Ketones NEGATIVE (NEGATIVE) Urine Blood 50 (0-5) Sharath/ul Urine Nitrite NEGATIVE (NEGATIVE) Urine Bilirubin NEGATIVE (NEGATIVE) Urine Urobilinogen 1 (0-1) mg/dL Ur Leukocyte Esterase TRACE (NEGATIVE) Urine Microscopic RBC 5-10 (0-2) /HPF Urine Microscopic WBC 2-5 (0-5) /HPF Ur Epithelial Cells MODERATE (FEW) /HPF Amorphous Crystals MODERATE (NEGATIVE) /HPF Urine Bacteria FEW (NEGATIVE) /HPF Urine Mucus SLIGHT (NEGATIVE) /HPF Urine Culture Reflexed YES (NO) Urine Glucose NEGATIVE (NEGATIVE) mg/dL Specimen Received 04/05/17 2100 - Progress Progress: unchanged - Departure Time of Disposition: 21:40 Departure Disposition: Home Clinical Impression: Parkinsons Condition: Stable Critical Care Time: No Referrals: KIRILL VILLEDA MD [Primary Care Provider] - Additional Instructions: The increased problems you had been experiencing today come from the elimination of your Parkinson's medicine today. Your laboratory results were all normal. Your head CT was unremarkable. Follow-up as needed.
[2017-04-05 20:56] LABS: BASOPHIL % 0.5 % (0.0-0.4); Eosinophil % 1.8 % (0.00-5.0); Granulocytes % 67.9 % (36.0-66.0); Lymphocytes % 19.2 % (24.0-44.0); Mean Cell Volume 94.8 fl (78-100); Mean Corpuscular Hemoglobin 30.2 pg (26-32); Mean Platelet Volume 10.4 fl (6-9.5); Monocytes % 10.6 % (0.0-12.0); Platelet Count 153 K/mm3 (150-450); Red Blood Count 3.44 M/mm3 (4.1-5.4); Red Cell Distribution Width 13.9 % (11.5-14.0); White Blood Count 3.9 K/mm3 (4.0-10.5)
[2017-04-05 21:10] LABS: ANION GAP 9.4 MEQ/L (5-15); Carbon Dioxide 32.7 mEq/L (21-32); Potassium 4.3 mEq/L (3.5-5.1)
[2017-04-05 21:31] LABS: Collection Type VOID
[2017-04-05 21:32] LABS: ADD URINE CULTURE? YES (NO); Bacteria FEW /HPF (NEGATIVE); Bilirubin NEGATIVE (NEGATIVE); Blood 50 Ery/ul (0-5); COMPLETE URINE MICROSCOPIC? YES; Epithelial Cells MODERATE /HPF (FEW); Glucose NEGATIVE (NEGATIVE); Leukocyte Esterase TRACE (NEGATIVE); Mucus SLIGHT /HPF (NEGATIVE)
[2017-04-05 21:47] VITALS: PULSE 96
[2017-04-05 22:09] VITALS: BP 156/80; O2SAT 97
--- NOTE | 2017-04-06 09:10 | XRAY ---
Indication: Slurred speech. Multiple contiguous axial images obtained through the head without contrast. Comparison: July 07, 2016. Stable age-appropriate global atrophy and mild periventricular degenerative micro-ischemia bilaterally. No acute intracranial hemorrhage, abnormal extra-axial fluid collection, or mass effect. Fourth ventricle is midline without hydrocephalus. Bony calvarium intact. Stable right sphenoid sinus chronic mucoperiosteal thickening with fluid leveling. Remaining paranasal sinuses and mastoid air cells clear. Impression: Stable nonacute senile brain with chronic right sphenoid sinus disease. CTDI 61.17
== END 2017-04-05 22:17 | disposition home or self-care (01) ==
LOC: ED 19:55
DX: G20 Parkinson's disease (principal); I50.9 Heart failure, unspecified; I10 Essential (primary) hypertension; G89.29 Other chronic pain; Z79.899 Other long term (current) drug therapy
CPT/HCPCS: 36415; 70450; 80048; 81000; 85025; 87086; 99284

== ENCOUNTER 2017-08-24 08:42 | Emergency (ER) | payer MEDICARE, OTHER ==
[2017-08-24 08:52] VITALS: O2SAT 98
--- NOTE | 2017-08-24 09:04 | ERPHSYRPT ---
- History of Present Illness Time Seen by Provider: 08/24/17 09:00 Source: patient Exam Limitations: no limitations Patient Subjective Stated Complaint: usp states "she had a nose bleed an her blood pressure was 256/112. I gave her her daily meds but I do not want her to have a stroke.". Medics states "when we got there to pick her up, she was sitting there eating breakfast, no nose bleed, and her pressure was 156/78" Triage Nursing Assessment: Pt alert and oriented X 3, skin pwd. PT has tremors , no bleeding noted, speech clear and appropriate. no apparent distress Physician History: 87 y/o female sent from [facility] for nose bleed and high blood pressure of 256/112. Pt took her morning meds. Upon arrival by EMS, patient had a BP of 156/ 87 and had no nose bleeding. In the ER, patient remains asymptomatic. Pt has no complaints. Timing/Duration: today Activities at Onset: none Nitro Today/Relief: no nitro taken today Aspirin Treatment Today: no aspirin today Associated Symptoms: denies symptoms Allergies/Adverse Reactions: No Known Drug Allergies Allergy (Verified 01/07/17 05:42) Home Medications: Docusate Sodium [Colace] 100 mg PO BID 01/02/16 [History] Bumetanide 1 mg [Bumex 1 mg] 1 mg PO DAILY 07/07/16 [History] Carbidopa/Levodopa [Carbidopa-Levo 25-100 mg Odt] 1 each PO BID 07/07/16 [ History] Metoprolol Succinate 25 mg PO DAILY 07/07/16 [History] Acetaminophen 325 mg [Tylenol 325 mg] 650 mg PO Q4HPRN PRN 01/07/17 [ History] Diclofenac Sodium Gel [Voltaren GEL] 100 gm TP BID 01/07/17 [History] Enema Bag, Disposable [Enema Bag] 1 each RC DAILY PRN 01/07/17 [History] Ferrous Sulfate 325 mg PO DAILY 01/07/17 [History] Lactose-Reduced Food [Ensure Liquid] 237 ml PO AC 01/07/17 [History] Hx Tetanus, Diphtheria Vaccination/Date Given: Yes Hx Influenza Vaccination/Date Given: Yes Hx Pneumococcal Vaccination/Date Given: No Immunizations Up to Date: Yes - Review of Systems Constitutional: No Fever, No Chills Eyes: No Symptoms Ears, Nose, & Throat: Epistaxis Respiratory: No Cough, No Dyspnea Cardiac: No Chest Pain, No Edema, No Syncope Abdominal/Gastrointestinal: No Abdominal Pain, No Nausea, No Vomiting, No Diarrhea Genitourinary Symptoms: No Dysuria Musculoskeletal: No Back Pain, No Neck Pain Skin: No Rash Neurological: No Dizziness, No Focal Weakness, No Headache, No Sensory Changes Psychological: No Symptoms Endocrine: No Symptoms All Other Systems: Reviewed and Negative - Past Medical History Pertinent Past Medical History: Yes Neurological History: Other ENT History: No Pertinent History Cardiac History: Congestive Heart Failure, Hypertension Respiratory History: CHF Endocrine Medical History: No Pertinent History Musculoskeletal History: No Pertinent History GI Medical History: No Pertinent History History: No Pertinent History Psycho-Social History: No Pertinent History Female Reproductive Disorders: Breast Cancer Other Medical History: PARKINSONS - Past Surgical History Past Surgical History: Yes Neuro Surgical History: No Pertinent History Cardiac: No Pertinent History Respiratory: No Pertinent History Gastrointestinal: No Pertinent History Genitourinary: No Pertinent History Musculoskeletal: Orthopedic Surgery Female Surgical History: Hysterectomy, Mastectomy Other Surgical History: RIGHT MASTECTOMY IN 1984 FROM BREAST CA - Social History Smoking Status: Never smoker Exposure to second hand smoke: No Drug Use: none Patient Lives Alone: No Significant Family History: heart disease, hypertension - Nursing Vital Signs Nursing Vital Signs: Initial Vital Signs Temperature 98.8 F 08/24/17 08:43 Pulse Rate 106 H 08/24/17 08:43 Respiratory Rate 18 08/24/17 08:43 Blood Pressure 168/72 08/24/17 08:43 O2 Sat by Pulse Oximetry 98 08/24/17 08:43 Pain Scale Pain Intensity 0 - Physical Exam General Appearance: no apparent distress, alert Eye Exam: PERRL/EOMI, eyes nml inspection Ears, Nose, Throat Exam: normal ENT inspection, moist mucous membranes Neck Exam: normal inspection, non-tender, supple Respiratory Exam: normal breath sounds, lungs clear, No respiratory distress Cardiovascular Exam: regular rate/rhythm, normal heart sounds, tachycardia, No edema Gastrointestinal/Abdomen Exam: soft, No tenderness, No mass Back Exam: normal inspection, No CVA tenderness, No vertebral tenderness Extremity Exam: normal inspection, normal range of motion Neurologic Exam: alert, oriented x 3, cooperative, normal mood/affect, nml cerebellar function, sensation nml, No motor deficits Skin Exam: normal color, warm, dry Lymphatic Exam: No adenopathy SpO2: 98 Oxygen Delivery: Room Air - Course Nursing assessment & vital signs reviewed: Yes EKG Interpreted by Me: RATE, NORMAL AXIS, NORMAL INTERVALS, NORMAL QRS, Non- specific ST Changes Ordered Tests: Active Orders 24 hr Category Date Time Status EKG-ER Only STAT Care 08/24/17 09:00 Active CBC W DIFF Stat Lab 08/24/17 09:20 Completed CMP Stat Lab 08/24/17 09:20 Completed PROTIME WITH INR Stat Lab 08/24/17 09:20 Completed PTT Stat Lab 08/24/17 09:20 Completed TROPONIN Q3H Lab 08/24/17 09:20 Received TROPONIN Q3H Lab 08/24/17 12:00 Ordered TROPONIN Q3H Lab 08/24/17 15:00 Ordered TROPONIN Q3H Lab 08/24/17 18:00 Ordered TROPONIN Q3H Lab 08/24/17 21:00 Ordered Lab/Rad Data: Laboratory Result Diagrams 08/24/17 09:20 08/24/17 09:20 Laboratory Results 08/24/17 08/24/17 08/24/17 Range/Units 09:20 09:20 09:20 WBC 4.2 (4.0-10.5) K/mm3 RBC 3.85 L (4.1-5.4) M/mm3 Hgb 11.4 L (12.0-16.0) gm/dl Hct 35.9 (35-47) % MCV 93.2 (78-100) fl MCH 29.6 (26-32) pg MCHC 31.8 L (32-36) g/dl RDW 13.6 (11.5-14.0) % Plt Count 169 (150-450) K/mm3 MPV 10.2 H (6-9.5) fl Gran % 74.4 H (36.0-66.0) % Lymphocytes % 14.9 L (24.0-44.0) % Monocytes % 9.1 (0.0-12.0) % Eosinophils % 1.4 (0.00-5.0) % Basophils % 0.2 (0.0-0.4) % Basophils # 0.01 (0-0.4) INR 1.02 (0.8-3.0) APTT 30.3 (25.3-37.0) SECONDS Sodium 141 (136-145) mEq/L Potassium 4.4 (3.5-5.1) mEq/L Chloride 103 (98-107) mEq/L Carbon Dioxide 31.4 (21-32) mEq/L Anion Gap 11.0 (5-15) MEQ/L BUN 24 H (9-20) mg/dL Creatinine 0.92 (0.55-1.30) mg/dl Estimated GFR > 60 ML/MIN Glucose 79 (70-110) MG/DL Calcium 8.9 (8.5-10.1) mg/dL Total Bilirubin 0.30 (0.2-1.0) mg/dL AST 13 L (15-37) U/L ALT 7 L (12-78) U/L Alkaline Phosphatase 62 (46-116) U/L Serum Total Protein 7.2 (6.4-8.2) gm/dL Albumin 3.6 (3.4-5.0) g/dL - Progress Progress: improved Progress Note: 08/24/17 10:14 Blood work is unremarkable, BP has improved and the patient has not had any nose bleeding. Pt will be sent back to [facility]. - Departure Time of Disposition: 10:15 Departure Disposition: Home Clinical Impression: Epistaxis Hypertension Qualifiers: Hypertension type: unspecified Qualified Code(s): I10 - Essential (primary) hypertension Condition: Stable Critical Care Time: No Referrals: KIKI JANSEN [LOCATION] - Instructions: High Blood Pressure (DC), Nosebleeds (DC) Additional Instructions: Follow up with your primary care doctor for evaluation of elevated blood pressure.
[2017-08-24 09:28] LABS: BASOPHIL % 0.2 % (0.0-0.4); Basophil (Absolute #) 0.01 (0-0.4); Eosinophil % 1.4 % (0.00-5.0); Eosinophil (Absolute #) 0.06 (0-0.5); Granulocytes % 74.4 % (36.0-66.0); Hematocrit 35.9 % (35-47); Hemoglobin 11.4 gm/dl (12.0-16.0); Lymphocyte (Absolute #) 0.62 (1.0-4.6); Lymphocytes % 14.9 % (24.0-44.0); Mean Cell Volume 93.2 fl (78-100); Mean Corpuscular Hemoglobin 29.6 pg (26-32); Mean Corpuscular Hgb Concent. 31.8 g/dl (32-36); Mean Platelet Volume 10.2 fl (6-9.5); Monocyte (Absolute #) 0.38 (0.0-1.3); Monocytes % 9.1 % (0.0-12.0); Platelet Count 169 K/mm3 (150-450); Red Blood Count 3.85 M/mm3 (4.1-5.4); Red Cell Distribution Width 13.6 % (11.5-14.0); White Blood Count 4.2 K/mm3 (4.0-10.5)
[2017-08-24 09:40] LABS: INR 1.02 (0.8-3.0)
[2017-08-24 09:42] LABS: PTT 30.3 SECONDS (25.3-37.0)
[2017-08-24 09:48] LABS: ALBUMIN 3.6 g/dL (3.4-5.0); ALKALINE PHOSPHATASE 62 U/L (46-116); BLOOD UREA NITROGEN 24 mg/dL (9-20); CHLORIDE 103 mEq/L (98-107); Calcium 8.9 mg/dL (8.5-10.1); Carbon Dioxide 31.4 mEq/L (21-32); Creatinine 1 0.92 mg/dl (0.55-1.30); Glucose 79 MG/DL (70-110); Potassium 4.4 mEq/L (3.5-5.1); SGOT/AST 13 U/L (15-37); SODIUM 141 mEq/L (136-145); Total Protein 7.2 gm/dL (6.4-8.2)
[2017-08-24 10:00] LABS: SGPT/ALT 7 U/L (12-78)
[2017-08-24 11:31] VITALS: BP 102/57; PULSE 70
== END 2017-08-24 10:40 | disposition home or self-care (01) ==
LOC: ED 08:42
DX: R04.0 Epistaxis (principal); I10 Essential (primary) hypertension; Z79.899 Other long term (current) drug therapy
CPT/HCPCS: 36415; 80053; 84484; 85025; 85610; 85730; 93005; 99283; 99284